=== PATIENT | female | born 1940 | race Caucasian/White ===

== ENCOUNTER 2020-11-25 08:41 | Outpatient (CLI) | payer MEDICARE | END 2020-11-25 08:42 | disposition home or self-care (01) | LOC: NM 08:41 | PROVIDERS: ATTEND Psychiatry & Neurology Neurology | DX: G20 Parkinson's disease (principal) | CPT/HCPCS: 78803; A9584 ==

== ENCOUNTER 2022-10-05 06:26 | Emergency (ER) | payer MEDICARE ==
[2022-10-05 06:55] LABS: #Lymphocytes 0.7 thou/uL (1.20-3.40); #Monocytes 0.4 thou/uL (0.11-0.59); #Neutrophils 6.5 thou/uL (1.40-6.50); %Eosinophils 0.6 % (0.0-10.0); %Monocytes 5.7 % (0.0-10.0); %Neutrophils 84.7 % (42.0-75.0); Hemoglobin 12.9 g/dL (12.0-16.0); Mean Corpuscular Hemoglobin 32.4 pg (27.0-31.0); Mean Corpuscular Volume 95.3 fl (78.0-98.0); Mean Platelet Volume 7.6 fL (7.4-10.4); Platelet Count 224 10x3/uL (130-400); RBC Distribution Width 11.8 % (11.5-14.5); Red Blood Cell (RBC) Count 3.97 mill/uL (4.20-5.40); White Blood Cell (WBC) Count 7.7 10x3/uL (4.8-10.8)
[2022-10-05 07:22] LABS: ALT (SGPT) 16 U/L (8-55); AST (SGOT) 18 U/L (5-34); Albumin 4.5 g/dL (3.4-4.8); Alkaline Phosphatase 61 U/L (40-110); Anion Gap 17 mmol/L (10-20); BUN (Urea Nitrogen) 40 mg/dL (9.8-20.1); Bilirubin, Total 0.9 mg/dL (0.2-1.2); CK (CPK) 81 U/L (29-168); Calc. Creatinine Clearance 0 mL/min (70-130); Calcium 10.1 mg/dL (7.8-10.44); Carbon Dioxide 21 mmol/L (23-31); Chloride 105 mmol/L (98-107); Estimated GFR 78; Globulin 2.8 g/dL (2.4-3.5); Glucose 139 mg/dL (83-110); Potassium 3.7 mmol/L (3.5-5.1); Protein, Total 7.3 g/dL (5.8-8.1); Sodium 139 mmol/L (136-145)
== END 2022-10-05 09:16 | disposition home or self-care (01) ==
LOC: ERS 06:26
DX: M54.2 Cervicalgia (principal); W06.XXXA Fall from bed, initial encounter
CPT/HCPCS: 36415; 70450; 72125; 80053; 82550; 85025